=== PATIENT | female | born 1935 | race Caucasian/White ===

== ENCOUNTER 2022-09-16 06:48 | Day surgery (SDC) | payer MEDICARE, SELFPAY ==
--- NOTE | 2022-09-16 06:22 | ANES.PREOP_ITS ---
General Info Date of Service Date Performed: 09/16/22 Height: 5 ft 2 in Weight: 70.307 kg Body Mass Index (BMI): 28.3 Surgical Procedure: Operation Date: 09/16/22 08:40 Proposed Procedure Side Surgeon p Cataract Extraction with IOL Implant Right Tim Nova MD Meds Allergies and Home Medications Allergies Allergy/AdvReac Type Severity Reaction Status Date / Time ibuprofen Allergy Intermediate Other (See Unverified 09/14/22 10:17 Comment) levofloxacin Allergy Contraindic Unverified 09/14/22 10:17 ated LIVE VACCINES Allergy Severe Contraindic Uncoded 09/14/22 10:17 ated Home Medication Medication Instructions Recorded aspirin 81 mg capsule,delayed 81 mg PO DAILY 09/14/22 release atenolol 50 mg tablet 100 mg PO DAILY 09/14/22 atorvastatin 20 mg tablet 20 mg PO DAILY 09/14/22 azathioprine 50 mg tablet 50 mg PO TID 09/14/22 folic acid 1 mg tablet 1 mg PO DAILY 09/14/22 levetiracetam 500 mg tablet 500 mg PO BID 09/14/22 levothyroxine 100 mcg tablet 100 mcg PO DAILY 09/14/22 lisinopril 10 mg tablet 10 mg PO DAILY 09/14/22 pyridostigmine bromide 60 mg tablet 60 mg PO BID 09/14/22 Current Visit Medications: Current Medications Generic Name Dose Route Start Last Admin Trade Name Freq PRN Reason Stop Dose Admin Acetaminophen 1,000 mg 09/16/22 06:00 Acetaminophen 500 Mg Tab PO 10/16/22 05:59 Q4H PRN PRN Balanced Salt Solution 500 ml 09/16/22 06:00 Balanced Salt Soln.-Plus 500 Ml Bag OP 10/16/22 05:59 DIRECTED [facility] Miscellaneous Medication 0 ml 09/16/22 06:00 Prednisolone 1%, Moxifloxacin 0.5%, Nepafenac 0.1% 5ml Btl OD 10/16/22 05:59 DIRECTED [facility] Miscellaneous Medication 0 ml 09/16/22 06:00 Tropicam./Phenyleph. (1/2.5%) 5 Ml Btl OD 10/16/22 05:59 DIRECTED [facility] Tetracaine HCl 0 ml 09/16/22 06:00 Tetracaine 0.5% 4 Ml Btl OD 10/16/22 05:59 DIRECTED [facility] PFSH Active Problems Active Problems: Problem Status Onset Code Cortical age-related cataract, right eye H25.011 Nuclear age-related cataract, right eye H25.11 Medical History Medical History Carpal tunnel syndrome Chronic pain of left ankle Gastrointestinal stromal tumor (GIST) HTN (hypertension) Hypothyroidism Myasthenia gravis Osteoporosis PUD (peptic ulcer disease) Scoliosis Seizure disorder Per pt. states controlled by medication, last seizure was 4-5 years ago. F/U with PCP TGA (transient global amnesia) Per pt. states this was a long time ago Tubular adenoma Wet senile macular degeneration Surgical History Surgical History History of partial gastrectomy Hx of colonoscopy S/P repair of paraesophageal hernia Status post ORIF of fracture of ankle Tobacco Smoking/Tobacco Use Status: Never Alcohol Alcohol Intake: never Substance Use Substance use type: does not use Vital Signs and Lab Results Vital Signs Most Recent Vital Signs in EMR: Temp Pulse Resp BP Pulse Ox 36.4 C L 62 18 200/93 H 95 09/16/22 06:55 09/16/22 06:55 09/16/22 06:55 09/16/22 06:55 09/16/22 06:55 Lab Results Blood Type / Crossmatch: No Data to Display Complete Blood Count: No Data to Display Complete Metabolic Panel: No Data to Display Liver Function Panel: No Data to Display Coagulation Panel: No Data to Display Cardiac Panel: No Data to Display Arterial Blood Gas: No Data to Display Venous Blood Gas: No Data to Display Pancreas Panel: No Data to Display Thyroid Panel: No Data to Display Infectious Disease: No Data to Display Blood Cultures: No Data to Display Toxicology Panel: No Data to Display Anesthesia Assessment and Plan Anesthesia History Personal History: No History of Anesthesia Complications Family History: No Family History of Anesthesia Complications Exercise Tolerance Exercise Tolerance: Metabolic Equivalents<4 Cardiac & Pulmonary Exam Cardiac Exam: Normal S1/S2 Heart Sounds Pulmonary Exam: Clear Bilateral Breath Sounds Implantable Cardiac Device Does patient have a Pacemaker or an ICD?: No Airway Exam Known Difficult Airway: No Mallampati Class: 4 Mouth Opening: Narrow (< 3cm) Thyromental Distance: Less than 3 cm Neck Range of Motion: Limited ROM Neck Circumference: Thick Teeth Condition: Generalized Poor Dentition ASA Classification ASA Score: ASA 3 Emergency Case?: No NPO Status NPO Status: NPO Clears >2 hours, Solids >8 hours Anesthesia Plan Resuscitation Status: Full Code Anesthesia Technique: MAC Anesthesia Airway Planned: Natural Airway Monitors Used: Standard Monitors Preoperative Comments:: 86 yo female for cataract removal. no MKO Sig PMHx: HTN, myasthenia, sz, transient global amnesia, hypothyroid, never smoker.
[2022-09-16 06:55] VITALS: BP 200/93; PULSE 62; RESP 18; TEMP 36.4; O2SAT 95
[2022-09-16] MEDS: Tropicam./Phenyleph. (1/2.5%) 5 ML BTL OD ×3 (07:04→07:22)
[2022-09-16 07:24] VITALS: BMI 28.3
[2022-09-16] MEDS: Tetracaine 0.5% 4 ML BTL OD (08:08)
[2022-09-16] MEDS: Povidone-Iodine Ophth 30 ML BTL (08:08)
[2022-09-16] MEDS: Phenylephrine/Lidocaine (15/10) MG/ML 1 ML VIAL (08:13)
[2022-09-16] MEDS: Balanced Salt Soln.-PLUS 500 ML BAG OP (08:13)
[2022-09-16] MEDS: Trypan Blue 0.06% 0.5 ML SYR (08:14)
[2022-09-16] MEDS: Duovisc Viscoelastic System EACH 1 EACH (08:18)
[2022-09-16] MEDS: Lidocaine 1% Pres-Free 5 ML VIAL (08:18)
[2022-09-16 08:39] VITALS: BP 167/86; PULSE 59; RESP 16; TEMP 36.5; O2SAT 98
--- NOTE | 2022-09-16 08:39 | W.PM.DSUDISC ---
Date of service: 09/16/22 Time of Service: 08:40 Discharge Plan Disposition Patient Disposition: Home Discharge Details Attending Provider: Tim Nova Primary Care Provider: Jacquelin Rawls Home Meds and New Rx's Prescriptions: No Action atorvastatin 20 mg Tablet 20 mg PO DAILY levetiracetam 500 mg tablet 500 mg PO BID Patient Comments: TAKE 1 TABLET BY MOUTH TWICE DAILY azathioprine 50 mg tablet 50 mg PO TID Patient Comments: TAKE 1 TABLET BY MOUTH THREE TIMES DAILY levothyroxine 100 mcg tablet 100 mcg PO DAILY Patient Comments: TAKE 1 TABLET BY MOUTH ONCE DAILY IN THE MORNING ON AN EMPTY STOMACH pyridostigmine bromide 60 mg tablet 60 mg PO BID Patient Comments: TAKE 1 TABLET BY MOUTH TWICE DAILY lisinopril 10 mg tablet 10 mg PO DAILY Patient Comments: TAKE 1 TABLET BY MOUTH ONCE DAILY folic acid 1 mg tablet 1 mg PO DAILY Patient Comments: TAKE 1 TABLET BY MOUTH ONCE DAILY aspirin 81 mg Capsule,Delayed Release(Dr/Ec) 81 mg PO DAILY atenolol 50 mg tablet 100 mg PO DAILY Patient Comments: TAKE 2 TABLETS BY MOUTH ONCE DAILY Discharge Instructions Stand Alone Forms: Post-op Topical Cataract[place] (DSU) Discharge Orders Discharge Orders: Discharge Order (Routine); Ordered 09/16/22 Ordered By: Tim Nova DS: Diagnosis Discharge Diagnosis (1) Cortical age-related cataract, right eye: Status: Resolved (2) Nuclear age-related cataract, right eye: Status: Resolved
--- NOTE | 2022-09-16 08:41 | W.PM.OP ---
Date of service: 09/16/22 Time of Service: 08:41 Operative Note Operative Note DATE OF PROCEDURE: 09/16/22 PRE-OP DIAGNOSIS: Nuclear/cortical cataract, right eye POST-OP DIAGNOSIS: same PROCEDURE: Cataract extraction using phacoemulsification with intraocular lens implant, right eye SURGEON: Tim Nova ANESTHESIA TYPE: Local By Surgeon and MAC Refer to Anesthesia Record ESTIMATED BLOOD LOSS: 0 PATHOLOGY: none sent COMPLICATIONS: None Patient was transported to: same day Patient's condition: stable Implants: Ranjit Clareon [id number] Indications: Progressive decreased vision due to cataract, right eye Procedure Description: CATARACT SURGERY OPERATIVE REPORT PREOPERATIVE DIAGNOSIS: Nuclear/cortical cataract, right eye POSTOPERATIVE DIAGNOSIS: Same OPERATION: Cataract extraction using phacoemulsification with posterior chamber intraocular lens implant, right eye. IOL: IOL Building Rigger/Model: Ranjit Clareon [id number] IOL Power: + 19.0 diopters IOL Serial Number: [id number] Optic Diameter: 6.0mm Haptic/Overall Diameter: 13.0mm PHACO INFO: Ranjit DentLighturion Vision System with OZil and Active Fluidics Cumulative Dispersed Energy (CDE): 11.48 seconds SURGEON: Tim Nova MD, SAPPHIRE ANESTHESIA: Monitored Anesthesia Care (MAC), with local sub-tenon's anesthetic infiltration COMPLICATIONS: None SPECIMENS: None INDICATIONS FOR PROCEDURE: The patient is a 86-year-old lady with history of diminished visual acuity in her right eye secondary to the development of exudative macular degeneration. She has been getting intravitreal injections for many years. She has developed a significant nuclear/cortical cataract. The option of cataract surgery was offered to the patient in attempt to improve and maximize her vision, although postoperative visual acuity will be limited by the presence of pre-existing maculopathy. See office notes for detailed information. PROCEDURE: The correct surgical eye was identified and marked as the right eye and the pupil was dilated in the preoperative area using mydriatics and cycloplegics. The dilated pupil size was 7.0 mm. The patient elected to proceed without oral sedation. The patient was brought to the operating room where cardiopulmonary monitoring was instituted and surgical time-out was performed, confirming the correct operative eye and IOL power. Topical anesthesia was administered and ophthalmic povidone-iodine 5% was instilled into the conjunctival fornices. The david-ocular area was prepped with Betadine 10% solution and draped in the usual sterile fashion for intraocular surgery, including an aperture drape. A Tegaderm transparent film dressing was cut in half and used to cover the lashes and lid margins. Care was taken to sequester the lashes and lid margins under the Tegaderm dressing. A lid speculum was placed between the lids of the operative eye and the [employer] operating microscope was maneuvered into position. Merlene scissors were then used to make a conjunctival buttonhole approximately 6mm posterior to the limbus in the inferonasal quadrant. Blunt dissection was carried out to expose bare sclera, and a blunt-tipped sub-tenon?s anesthesia cannula was introduced and passed posteriorly along the globe where non-preserved plain lidocaine was injected into posterior sub-Tenon?s space. A sideport knife was used to make a paracentesis port. VisionBlue was injected into the anterior chamber and allowed to sit for 20 seconds. Intraocular phenylephrine/lidocaine was injected into the anterior chamber. The anterior chamber was then filled with viscoelastic. A keratome knife was used to construct a two--plane clear corneal tunnel extending 2.0mm into clear cornea. A flap was raised on the anterior capsule and capsulorhexis forceps were used to complete a continuous curvilinear capsulorhexis of 5.0 mm. Balanced salt solution was then used to perform cortical cleaving hydrodissection and nuclear hydrodelineation until the lens could be freely rotated within the capsular bag. The lens nucleus was then disassembled and removed within the capsular bag and iris plane using phacoemulsification. Residual cortical material was removed using the I/A handpiece. The posterior capsule was carefully polished to remove as much residual lens epithelial cells as safely possible. The capsular bag was then inflated and the anterior chamber deepened with cohesive viscoelastic. The lens implant described above was inserted into the capsular bag using the Ranjit Autonome Injector. A Kuglen hook was used to dial the IOL into position. Residual viscoelastic was then removed first from posterior to the IOL, then from the anterior chamber using the I/A handpiece. The lens implant was noted to center nicely within the capsular bag. The incisions were stromally hydrated, and the anterior chamber was reformed using BSS. Then 0.5cc of moxifloxacin 1.0mg/ml were injected into the capsular bag and anterior chamber. The incisions were checked with a Weck spear and found to be secure. Several drops of ophthalmic povidone-iodine 5% were then applied to the eye followed by two drops of Imprimis combination prednisolone/moxifloxacin/nepafenac solution. The drapes were removed and a clear plastic protective eye shield was placed over the eye. The patient was then returned to Same Day Surgery in stable condition.
--- NOTE | 2022-09-16 08:49 | W.ANESPOSTOP ---
Postoperative Evaluation Date, Time and Location Date Performed: 09/16/22 Time Performed: 08:49 Patient Location: Day Surgery Unit Vital Signs Most Recent Imported Vital Signs: Most Recent Vital Signs Temp Pulse Resp BP Pulse Ox 36.5 C 59 L 16 167/86 H 98 09/16/22 08:39 09/16/22 08:39 09/16/22 08:39 09/16/22 08:39 09/16/22 08:39 Pain Score Most Recent Pain Score: Most Recent Pain Score Pain Level 0 09/16/22 08:39 Assessment Mental Status: Awake (Alert & Oriented to Patient Baseline) Airway and Respiratory Function: Patent airway with normal (patient baseline) respiratory exam Cardiovascular Function: Hemodynamically Stable Hydration Status: Adequately Hydrated Nausea & Vomiting: No Nausea or Vomiting Pain: Pt. Denies Any Pain Peripheral Nerve Block: Patient did not receive a nerve block
== END 2022-09-16 09:10 | disposition home or self-care (01) ==
PROVIDERS: PCP Family Medicine; Visit Provider Ophthalmology
PROC: (CPT 66984; principal; 2022-09-16 08:30)
DX: H25.011 Cortical age-related cataract, right eye (principal); H25.11 Age-related nuclear cataract, right eye; I10 Essential (primary) hypertension
CPT/HCPCS: 66984; V2632

== ENCOUNTER 2022-09-30 06:21 | Day surgery (SDC) | payer MEDICARE, SELFPAY ==
[2022-09-30] MEDS: Tropicam./Phenyleph. (1/2.5%) 5 ML BTL OS ×3 (06:47→07:05)
[2022-09-30 06:48] VITALS: BP 177/82; PULSE 58; RESP 16; TEMP 36.5; O2SAT 97
[2022-09-30 07:10] VITALS: BMI 30.5
--- NOTE | 2022-09-30 07:10 | W.ANESPRE ---
General Info Date of Service Date Performed: 09/30/22 Height: 5 ft 2 in Weight: 75.8 kg Body Mass Index (BMI): 30.5 Surgical Procedure: Operation Date: 09/30/22 07:40 Proposed Procedure Side Surgeon p Cataract Extraction with IOL Implant Left Tim Nova MD Meds Allergies and Home Medications Allergies Allergy/AdvReac Type Severity Reaction Status Date / Time ibuprofen Allergy Intermediate Other (See Unverified 09/30/22 06:54 Comment) levofloxacin Allergy Contraindic Unverified 09/30/22 06:54 ated LIVE VACCINES Allergy Severe Contraindic Uncoded 09/30/22 06:54 ated Home Medication Medication Instructions Recorded aspirin 81 mg capsule,delayed 81 mg PO DAILY 09/14/22 release atenolol 50 mg tablet 100 mg PO DAILY 09/14/22 atorvastatin 20 mg tablet 20 mg PO DAILY 09/14/22 azathioprine 50 mg tablet 50 mg PO TID 09/14/22 folic acid 1 mg tablet 1 mg PO DAILY 09/14/22 levetiracetam 500 mg tablet 500 mg PO BID 09/14/22 levothyroxine 100 mcg tablet 100 mcg PO DAILY 09/14/22 lisinopril 10 mg tablet 10 mg PO DAILY 09/14/22 pyridostigmine bromide 60 mg tablet 60 mg PO BID 09/14/22 Current Visit Medications: Current Medications Generic Name Dose Route Start Last Admin Trade Name Freq PRN Reason Stop Dose Admin Acetaminophen 1,000 mg 09/30/22 06:00 Acetaminophen 500 Mg Tab PO 10/30/22 05:59 Q4H PRN PRN Balanced Salt Solution 500 ml 09/30/22 06:00 Balanced Salt Soln.-Plus 500 Ml Bag OP 10/30/22 05:59 DIRECTED [facility] Miscellaneous Medication 0 ml 09/30/22 06:00 Prednisolone 1%, Moxifloxacin 0.5%, Nepafenac 0.1% 5ml Btl OS 10/30/22 05:59 DIRECTED [facility] Miscellaneous Medication 0 ml 09/30/22 06:00 09/30/22 07:05 Tropicam./Phenyleph. (1/2.5%) 5 Ml Btl OS 10/30/22 05:59 1 drp DIRECTED [facility] Administration Tetracaine HCl 0 ml 09/30/22 06:00 Tetracaine 0.5% 4 Ml Btl OS 10/30/22 05:59 DIRECTED [facility] Active Problems Active Problems: Problem Status Onset Code Cortical age-related cataract, left eye H25.012 Nuclear age-related cataract, left eye H25.12 Cortical age-related cataract, right eye H25.011 Nuclear age-related cataract, right eye H25.11 Medical History Medical History Carpal tunnel syndrome Chronic pain of left ankle Gastrointestinal stromal tumor (GIST) HTN (hypertension) Hypothyroidism Myasthenia gravis Osteoporosis PUD (peptic ulcer disease) Scoliosis Seizure disorder Per pt. states controlled by medication, last seizure was 4-5 years ago. F/U with PCP TGA (transient global amnesia) Per pt. states this was a long time ago Tubular adenoma Wet senile macular degeneration Surgical History Surgical History History of partial gastrectomy Hx of colonoscopy S/P repair of paraesophageal hernia Status post ORIF of fracture of ankle Tobacco Smoking/Tobacco Use Status: Never Alcohol Alcohol Intake: never Substance Use Substance use: Never Substance use type: does not use Vital Signs and Lab Results Vital Signs Most Recent Vital Signs in EMR: Most Recent Vital Signs Temp Pulse Resp BP Pulse Ox 36.5 C 58 L 16 177/82 H 97 09/30/22 06:48 09/30/22 06:48 09/30/22 06:48 09/30/22 06:48 09/30/22 06:48 Lab Results Blood Type / Crossmatch: No Data to Display Complete Blood Count: No Data to Display Complete Metabolic Panel: No Data to Display Liver Function Panel: No Data to Display Coagulation Panel: No Data to Display Cardiac Panel: No Data to Display Arterial Blood Gas: No Data to Display Venous Blood Gas: No Data to Display Pancreas Panel: No Data to Display Thyroid Panel: No Data to Display Infectious Disease: No Data to Display Blood Cultures: No Data to Display Toxicology Panel: No Data to Display Anesthesia Assessment and Plan Anesthesia History Personal History: No History of Anesthesia Complications Family History: No Family History of Anesthesia Complications Exercise Tolerance Exercise Tolerance: Metabolic Equivalents<4 Pertinent Negatives Pertinent Negatives: No Symptoms of GERD Cardiac & Pulmonary Exam Cardiac Exam: Normal S1/S2 Heart Sounds Pulmonary Exam: Clear Bilateral Breath Sounds Implantable Cardiac Device Does patient have a Pacemaker or an ICD?: No Airway Exam Known Difficult Airway: No Mallampati Class: 4 Mouth Opening: Narrow (< 3cm) Thyromental Distance: Less than 3 cm Neck Range of Motion: Limited ROM Neck Circumference: Thick Teeth Condition: Generalized Poor Dentition ASA Classification ASA Score: ASA 3 Emergency Case?: No NPO Status NPO Status: NPO Clears >2 hours, Solids >8 hours Anesthesia Plan Resuscitation Status: Full Code Anesthesia Technique: MAC Anesthesia Airway Planned: Natural Airway Monitors Used: Standard Monitors
[2022-09-30] MEDS: Lidocaine 1% Pres-Free 5 ML VIAL (07:31)
[2022-09-30] MEDS: Phenylephrine/Lidocaine (15/10) MG/ML 1 ML VIAL (07:32)
[2022-09-30] MEDS: Duovisc Viscoelastic System EACH 1 EACH (07:33)
[2022-09-30] MEDS: Balanced Salt Soln.-PLUS 500 ML BAG OP (07:34)
[2022-09-30] MEDS: Tetracaine 0.5% 4 ML BTL OS (07:36)
[2022-09-30 07:55] VITALS: BP 183/76; PULSE 60; RESP 16; TEMP 36.5; O2SAT 97
--- NOTE | 2022-09-30 07:55 | W.PM.DSUDISC ---
Date of service: 09/30/22 Time of Service: 07:55 Discharge Plan Disposition Patient Disposition: Home Discharge Details Attending Provider: Tim Nova Primary Care Provider: Jacquelin Rawls Home Meds and New Rx's Prescriptions: No Action atorvastatin 20 mg Tablet 20 mg PO DAILY levetiracetam 500 mg tablet 500 mg PO BID Patient Comments: TAKE 1 TABLET BY MOUTH TWICE DAILY azathioprine 50 mg tablet 50 mg PO TID Patient Comments: TAKE 1 TABLET BY MOUTH THREE TIMES DAILY levothyroxine 100 mcg tablet 100 mcg PO DAILY Patient Comments: TAKE 1 TABLET BY MOUTH ONCE DAILY IN THE MORNING ON AN EMPTY STOMACH pyridostigmine bromide 60 mg tablet 60 mg PO BID Patient Comments: TAKE 1 TABLET BY MOUTH TWICE DAILY lisinopril 10 mg tablet 10 mg PO DAILY Patient Comments: TAKE 1 TABLET BY MOUTH ONCE DAILY folic acid 1 mg tablet 1 mg PO DAILY Patient Comments: TAKE 1 TABLET BY MOUTH ONCE DAILY aspirin 81 mg Capsule,Delayed Release(Dr/Ec) 81 mg PO DAILY atenolol 50 mg tablet 100 mg PO DAILY Patient Comments: TAKE 2 TABLETS BY MOUTH ONCE DAILY Discharge Instructions Stand Alone Forms: Post-op Topical CataractHelena (DSU) Discharge Orders Discharge Orders: Discharge Order (Routine); Ordered 09/30/22 Ordered By: Tim Nova DS: Diagnosis Discharge Diagnosis (1) Cortical age-related cataract, left eye: Status: Resolved (2) Nuclear age-related cataract, left eye: Status: Resolved
--- NOTE | 2022-09-30 07:56 | W.PM.OP ---
Date of service: 09/30/22 Time of Service: 07:56 Operative Note Operative Note DATE OF PROCEDURE: 09/30/22 PRE-OP DIAGNOSIS: Nuclear/cortical cataract, left eye POST-OP DIAGNOSIS: same PROCEDURE: Cataract extraction using phacoemulsification with intraocular lens implant, left eye SURGEON: Tim Nova ANESTHESIA TYPE: Local By Surgeon and MAC Refer to Anesthesia Record PATHOLOGY: none sent COMPLICATIONS: None Patient was transported to: same day Patient's condition: stable Implants: Ranjit Clareon [id number] Indications: Progressive decreased vision due to cataract, left eye Procedure Description: CATARACT SURGERY OPERATIVE REPORT PREOPERATIVE DIAGNOSIS: Nuclear/cortical cataract, left eye POSTOPERATIVE DIAGNOSIS: Same OPERATION: Cataract extraction using phacoemulsification with posterior chamber intraocular lens implant, left eye. IOL: IOL Industrial Safety [employer] Health Specialist/Model: Ranjit Clareon [id number] IOL Power: + 18.5 diopters IOL Serial Number: [id number] Optic Diameter: 6.0mm Haptic/Overall Diameter: 13.0mm PHACO INFO: RanjitOnly-apartmentsurion Vision System with OZil and Active Fluidics Cumulative Dispersed Energy (CDE): 9.47 seconds SURGEON: Tim Nova MD, SAPPHIRE ANESTHESIA: Monitored Anesthesia Care (MAC), with local sub-tenon's anesthetic infiltration COMPLICATIONS: None SPECIMENS: None INDICATIONS FOR PROCEDURE: Patient is an 86-year-old lady with history of diminished visual acuity in both eyes secondary to the development of bilateral nuclear/cortical cataract. She is significantly symptomatic that she desires cataract surgery and attempt to improve and maximize her vision. She has already undergone cataract surgery in the right eye and is doing well postoperatively. Postoperative visual acuity is limited by the presence of pre-existing exudative macular degeneration, for which she is undergoing intravitreal injections. See office notes for detailed information. PROCEDURE: The correct surgical eye was identified and marked as the left eye and the pupil was dilated in the preoperative area using mydriatics and cycloplegics. The dilated pupil size was 7.0 mm. The patient elected to proceed without oral sedation. The patient was brought to the operating room where cardiopulmonary monitoring was instituted and surgical time-out was performed, confirming the correct operative eye and IOL power. Topical anesthesia was administered and ophthalmic povidone-iodine 5% was instilled into the conjunctival fornices. The david-ocular area was prepped with Betadine 10% solution and draped in the usual sterile fashion for intraocular surgery, including an aperture drape. A Tegaderm transparent film dressing was cut in half and used to cover the lashes and lid margins. Care was taken to sequester the lashes and lid margins under the Tegaderm dressing. A lid speculum was placed between the lids of the operative eye and the Ranjit [employer] operating microscope was maneuvered into position. Merlene scissors were then used to make a conjunctival buttonhole approximately 6mm posterior to the limbus in the inferonasal quadrant. Blunt dissection was carried out to expose bare sclera, and a blunt-tipped sub-tenon?s anesthesia cannula was introduced and passed posteriorly along the globe where non-preserved plain lidocaine was injected into posterior sub-Tenon?s space. A sideport knife was used to make a paracentesis port. Intraocular phenylephrine/lidocaine was injected into the anterior chamber. The anterior chamber was then filled with viscoelastic. A keratome knife was used construct a two-plane clear corneal tunnel extending 2.0mm into clear cornea. A flap was raised on the anterior capsule and capsulorhexis forceps were used to complete a continuous curvilinear capsulorhexis of 5.0 mm. Balanced salt solution was then used to perform cortical cleaving hydrodissection and nuclear hydrodelineation until the lens could be freely rotated within the capsular bag. The lens nucleus was then disassembled and removed within the capsular bag and iris plane using phacoemulsification. Residual cortical material was removed using the irrigation/aspiration handpiece. The posterior capsule was carefully polished to remove as much residual lens epithelial cells as safely possible. The capsular bag was then inflated and the anterior chamber deepened with viscoelastic. The lens implant described above was inserted into the capsular bag using the Ranjit Autonome Injector. A Kuglen hook was used to dial the IOL into position. Residual viscoelastic was then removed first from posterior to the IOL, then from the anterior chamber using the I/A handpiece. The lens implant was noted to center nicely within the capsular bag. The incisions were stromally hydrated, and the anterior chamber was reformed using BSS. Then 0.5cc of moxifloxacin 1.0mg/ml were injected into the capsular bag and anterior chamber. The incisions were checked with a Weck spear and found to be secure. Several drops of ophthalmic povidone-iodine 5% were then applied to the eye followed by two drops of Imprimis combination prednisolone/moxifloxacin/nepafenac solution. The drapes were removed and a clear plastic protective eye shield was placed over the eye. The patient was then returned to Same Day Surgery in stable condition.
--- NOTE | 2022-09-30 08:00 | W.ANESPOSTOP ---
Postoperative Evaluation Date, Time and Location Date Performed: 09/30/22 Time Performed: 08:01 Patient Location: Day Surgery Unit Vital Signs Most Recent Imported Vital Signs: Most Recent Vital Signs Temp Pulse Resp BP Pulse Ox 36.5 C 58 L 16 177/82 H 97 09/30/22 06:48 09/30/22 06:48 09/30/22 06:48 09/30/22 06:48 09/30/22 06:48 Assessment Mental Status: Awake (Alert & Oriented to Patient Baseline) Airway and Respiratory Function: Patent airway with normal (patient baseline) respiratory exam Cardiovascular Function: Hemodynamically Stable Hydration Status: Adequately Hydrated Nausea & Vomiting: No Nausea or Vomiting Pain: Pt. Denies Any Pain Peripheral Nerve Block: Patient did not receive a nerve block
== END 2022-09-30 08:17 | disposition home or self-care (01) ==
LOC: SUR 06:22
PROVIDERS: PCP Family Medicine; Visit Provider Ophthalmology
PROC: (CPT 66984; principal; 2022-09-30 07:30)
DX: H25.012 Cortical age-related cataract, left eye (principal); H25.12 Age-related nuclear cataract, left eye; Z98.41 Cataract extraction status, right eye
CPT/HCPCS: 66984; V2632